=== PATIENT | male | born 1995 | race African-American/Black ===

== ENCOUNTER 2018-01-05 13:49 | Emergency (ER) | payer BC ==
[~2018-01-05] VITALS: Ht 162.6 cm; Wt 56.7 kg
[2018-01-05 13:55] VITALS: TEMP 36.3; Ht 162.6 cm; Wt 56.7 kg
[2018-01-05 15:19] LABS: HEMATOCRIT 47.6 % (42-52); HEMOGLOBIN 16.6 g/dL (14.0-18.0); MEAN CELL VOLUME 90.2 fL (80-100); MEAN CORPUSCULAR HEMOGLOBIN 31.4 pg (25-34); MEAN CORPUSCULAR HGB CONC 34.9 g/dl (32-36); MEAN PLATELET VOLUME 10.9 fL (7.4-10.4); PLATELET COUNT 223 K/uL (130-400); RED CELL DISTRIBUTION WIDTH SD 39.7 fL (36.4-46.3)
[2018-01-05 15:27] LABS: INR 1.1 (0.9-1.1); PTT PATIENT 22.9 SECONDS (21.0-31.0)
[2018-01-05 15:36] LABS: ALBUMIN 4.5 gm/dl (3.4-5.0); CALCIUM 9.2 mg/dl (8.5-10.1); CREATININE 1.09 mg/dl (0.60-1.40); POTASSIUM 3.8 mmol/L (3.5-5.1)
[2018-01-05 15:41] LABS: CKMB 0.6 ng/ml (0.5-3.6); TOTAL PROTEIN 8.3 gm/dl (6.4-8.2)
--- NOTE | 2018-01-05 15:49 | DIAGNOSTIC IMAGING REPORT ---
CHEST ONE VIEW PORTABLE HISTORY: 22 years-old Male chest pain acute atypical chest pain COMPARISON: None available TECHNIQUE: Portable AP view of the chest FINDINGS: Cardiomediastinal and hilar silhouettes are within normal limits. No pneumothorax, pleural effusion, focal airspace consolidation or overt pulmonary edema. Bones of the chest appear grossly intact. IMPRESSION: No acute process. The above report was generated using voice recognition software. It may contain grammatical, syntax or spelling errors. Electronically signed by: Clemente Motta M.D. 01/05/2018 3:47 PM Dictated Date/Time: 01/05/2018 3:45 PM
[2018-01-05] MEDS ORDERED: MULT-513 PO (16:09)
--- NOTE | 2018-01-05 16:13 | EMERGENCY ROOM VISIT NOTE ---
History First contact with patient: 15:39 Chief Complaint: CHEST PAIN Stated Complaint: CHEST PAIN Nursing Triage Summary: Pt reports CP that started today in upper left side. Denies injury. Does report SOB and cough. History of Present Illness The patient is a 22 year old male who presents to the Emergency Room with complaints of chest pain. The patient reports that the pain began 3 hours prior to arrival. The patient had just smoked marijuana and was laying down in his apartment when his heart started racing and he felt a pressure-like pain in the left side of his chest. He states the pain was a 9/10 and he had associated dizziness and feeling like he was going to pass out. He states that the presyncopal feelings lasted approximately 1 hour. The chest pain has gradually improved and she reports he now has a slight pressure rated a 3/10. The chest pain had been coming in waves. The patient admits that he has smoked weed in the past, but has not done so for quite some time. He denies any cardiac history or family history of cardiac disease. He denies any recent travel. He does not smoke cigarettes. He denies any leg pain or swelling. He denies shortness of breath or syncope. Review of Systems A complete 10 point review of systems was reviewed with the patient with pertinent positives and negatives as per history of present illness. All else were negative. Past Medical/Surgical History Medical Problems: (1) No significant active problems Surgical Problems: (1) No significant past surgical history Social History Smoking Status: Never Smoker Alcohol Use: occasionally Drug Use: marijuana Housing Status: lives with roommate Occupation Status: [employer] Current/Historical Medications Scheduled Multivitamins/Minerals (Mvi With Minerals), 2 TAB PO PRN Physical Exam Vital Signs Date Time Temp Pulse Resp B/P (MAP) Pulse Ox O2 Delivery O2 Flow Rate FiO2 01/05/18 17:26 72 12 121/77 98 01/05/18 17:01 118/69 01/05/18 16:49 62 15 98 01/05/18 16:31 128/61 01/05/18 16:26 63 01/05/18 16:19 65 12 100 01/05/18 16:01 111/63 01/05/18 15:49 72 18 100 01/05/18 15:42 118/69 01/05/18 15:40 67 14 118/69 100 Room Air 01/05/18 14:02 96 Room Air 01/05/18 13:55 36.3 135 18 145/81 96 Room Air Physical Exam VITALS: Vitals are noted on the nurse's note and reviewed by myself. Vital signs stable. GENERAL: This is a 22-year-old male, in no acute distress, nondiaphoretic, well- developed well-nourished. SKIN: The skin was without rashes. HEAD: Normocephalic atraumatic. EARS: External auditory canals clear, tympanic membranes pearly hernandez without erythema or effusion bilaterally. EYES: Pupils equal round and reactive to light and accommodation. MOUTH: Mucous membranes moist. Tonsils are not enlarged. Pharynx without erythema or exudate. HEART: Regular rate and rhythm without murmurs gallops or rubs. LUNGS: Clear to auscultation bilaterally without wheezes, rales or rhonchi. No retractions or accessory muscle use. MUSCULOSKELETAL: No reproducible tenderness to palpation of the chest wall. NEURO: Patient was alert and oriented to person place and time. Medical Decision & Procedures ER Provider Diagnostic Interpretation: CHEST ONE VIEW PORTABLE HISTORY: 22 years-old Male chest pain acute atypical chest pain COMPARISON: None available TECHNIQUE: Portable AP view of the chest FINDINGS: Cardiomediastinal and hilar silhouettes are within normal limits. No pneumothorax, pleural effusion, focal airspace consolidation or overt pulmonary edema. Bones of the chest appear grossly intact. IMPRESSION: No acute process. Laboratory Results 01/05/18 14:04 01/05/18 14:04 Test 01/05/18 14:04 01/05/18 15:17 Red Blood Count 5.28 M/uL (4.7-6.1) Mean Corpuscular Volume 90.2 fL (80-100) Mean Corpuscular Hemoglobin 31.4 pg (25-34) Mean Corpuscular Hemoglobin Concent 34.9 g/dl (32-36) RDW Standard Deviation 39.7 fL (36.4-46.3) RDW Coefficient of Variation 12.0 % (11.5-14.5) Mean Platelet Volume 10.9 fL (7.4-10.4) Prothrombin Time 11.5 SECONDS (9.0-12.0) Prothromb Time International Ratio 1.1 (0.9-1.1) Activated Partial Thromboplast Time 22.9 SECONDS (21.0-31.0) Partial Thromboplastin Ratio 0.9 Anion Gap 5.0 mmol/L (3-11) Est Creatinine Clear Calc Drug Dose 86.0 ml/min Estimated GFR () 111.9 Estimated GFR (Non- 96.5 BUN/Creatinine Ratio 6.0 (10-20) Calcium Level 9.2 mg/dl (8.5-10.1) Total Bilirubin 1.0 mg/dl (0.2-1) Aspartate Amino Transf (AST/SGOT) 21 U/L (15-37) Alanine Aminotransferase (ALT/SGPT) 22 U/L (12-78) Alkaline Phosphatase 82 U/L (45-117) Total Creatine Kinase 115 U/L (39-308) Creatine Kinase MB 0.6 ng/ml (0.5-3.6) Creatine Kinase MB Ratio 0.5 (0-3.0) Total Protein 8.3 gm/dl (6.4-8.2) Albumin 4.5 gm/dl (3.4-5.0) Globulin 3.8 gm/dl (2.5-4.0) Albumin/Globulin Ratio 1.2 (0.9-2) Bedside Troponin I < 0.030 ng/ml (0-0.045) ECG Per My Interpretation Indication: chest pain Rate (beats per minute): 116 Rhythm: sinus tachycardia Findings: no acute ischemic change, no ectopy, other (likely rate related changes) Comparison ECG Date: no prior available Medical Decision Differential diagnosis includes acute coronary syndrome, pulmonary embolism, pneumothorax, pericarditis, myocarditis, endocarditis, anxiety, musculoskeletal pain, GERD, costochondritis, pneumonia, among others. The patient is a 22-year-old male who presents today complaining of left-sided chest pain. Labs revealed no leukocytosis, anemia or concerning electrolyte abnormalities. Troponin was not elevated. Patient's symptoms have gradually improved over the past several hours. The patient does admit that his pain began after smoking marijuana and was associated with palpitations and presyncope, likely secondary to anxiety. The patient was on the laboratory monitor throughout his stay and no arrhythmias were identified. He was advised to follow-up with [facility] this week for a recheck. Based on the patient's presentation and work up, I feel the patient is stable for outpatient treatment. The patient was educated to return to the emergency department for any worsening of their current condition or new/concerning symptoms. He will follow up with [facility]. Medication Reconcilliation Current Medication List: was personally reviewed by me Blood Pressure Screening Patient's blood pressure: Normal blood pressure Impression Primary Impression: Left sided chest pain Departure Information Dispostion Home / Self-Care Condition GOOD Referrals No Doctor, Assigned (PCP) Patient Instructions My [facility] Additional Instructions You have been treated in the Emergency Department for your Non-Cardiac Chest Pain. Laboratory results and Imaging Studies have ruled out any cardiac or pulmonary cause of your chest pain. For pain control, you can use the following [id number] medicines (if >12 yo): - Regular strength (325mg/tab) Tylenol (acetaminophen) 2 tabs every 4-6 hours as needed. Do not exceed 12 tablets in a 24 hour period. Avoid taking more than 4 grams (4000 mg) of Tylenol per day. This includes any other sources of acetaminophen you may take on a regular basis. - Regular strength (200 mg/tab) Advil (ibuprofen) 1-2 tabs every 4-6 hours as needed. Do not exceed a dose of 3200 mg per day. You should schedule a follow-up appointment with your Primary Care Provider in 2 -3 days for further evaluation from today's Emergency Department visit. Return to the Emergency Department if your current symptoms worsen despite treatment course outlined above, or if you develop any of the following symptoms : worsening chest pain, associated jaw/arm pain, nausea, dizziness, shortness of breath, bloody cough, or fainting.
[2018-01-05 17:26] VITALS: BP 121/77; PULSE 72; O2SAT 98
== END 2018-01-05 17:28 | disposition home or self-care (01) ==
LOC: C.EDB 13:51
DX: R07.89 Other chest pain (principal); R42 Dizziness and giddiness; R00.2 Palpitations